=== PATIENT | male | born 1960 | race Caucasian/White ===

== ENCOUNTER 2017-09-24 18:00 | Inpatient (IN) | payer BC ==
[~2017-09-24] VITALS: Ht 177.8 cm; Wt 97.5 kg
--- NOTE | 2017-09-24 18:17 | RAD ---
CT Head W/O Contrast: History: R SIDED WEAKNESS SLURRED SPEECH X 17:15 TODAY NO PREV Comparison: none Axial images were obtained without contrast. The walker and white matter appears normal and symmetrical for the patients age. There is no mass effect, extraaxial fluid collections or hydrocephalus. There is no gross bleed. There is no focal loss of walker-white matter distinction to suggest acute ischemia, i.e. stroke. Impression: No acute findings. End impression These results were called to Jana in the Emergency Department and verified by read back at the time of dictation. PQRS Compliance Statement: One or more of the following individualized dose reduction techniques were utilized for this examination: 1. Automated exposure control 2. Adjustment of the mA and/or kV according to patient size 3. Use of iterative reconstruction technique Electronically signed by: Cesario Solis III, MD (09/24/2017 6:13 PM) [facility]
[2017-09-24 18:26] LABS: BASO # 0.1 x10^3/uL (0.0-0.2); BASO % 1 % (0-3); EOS # 0.2 x10^3/uL (0.0-0.7); EOS % 2 % (0-3); HEMATOCRIT 46.2 % (39.0-53.0); HEMOGLOBIN 16.2 g/dL (13.0-17.5); LYMPH # 1.9 x10^3/uL (1.0-4.8); LYMPH % 24 % (24-48); MEAN CORPUSCULAR HEMOGLOBIN 33 pg (25-35); MEAN CORPUSCULAR HGB CONC 35 g/dL (31-37); MEAN CORPUSCULAR VOLUME 94 fL (79-100); MONO # 0.5 x10^3/uL (0.0-1.1); MONO % 7 % (0-9); NEUT # 5.4 x10^3uL (1.8-7.7); NEUT % 67 % (31-73); PLATELET COUNT 182 x10^3/uL (140-400); RED BLOOD COUNT 4.92 x10^6/uL (4.30-5.70); RED CELL DISTRIBUTION WIDTH 13.1 % (11.5-14.5); WHITE BLOOD COUNT 8.1 x10^3/uL (4.0-11.0)
[2017-09-24] MEDS ORDERED: CLOPIDOGREL BISULFATE 75 MG TABLET PO ONE (18:30)
[2017-09-24] MEDS ORDERED: ASPIRIN CHEWABLE 81 MG TABLET. PO ONE (18:30)
--- NOTE | 2017-09-24 18:34 | PHYS DOC ---
Past Medical History Past Medical History: No Pertinent History Smoking: Cigarettes, 1 Pack Per Day Adult General Chief Complaint Chief Complaint: NEURO SYMPTOMS/DEFICITS HPI HPI Patient is a 56-year-old male who presents to the emergency department for evaluation. He states he was at home, about 40 minutes prior to arrival when he began experiencing some right sided paresthesias and tingling in his right arm, and had weakness in his right leg, his states he was dragging his right leg. He also had slurred speech. He did have a slight left-sided headache. His symptoms completely resolved, they did return briefly, and have now resolved again. He is currently asymptomatic. He denies any headache, has not had any vision changes and denies any current speech changes. He is oriented. He was given 81 mg of aspirin prior to arrival, by his . He feels completely back to baseline at this time. He has not had any similar symptoms in the past. There are no alleviating or exacerbating factors to his symptoms. Review of Systems Review of Systems Constitutional: Denies fever or chills [] Eyes: Denies change in visual acuity, redness, or eye pain [] HENT: Denies nasal congestion or sore throat [] Respiratory: Denies cough or shortness of breath [] Cardiovascular: The patient denies any shortness of breath, chest pain, palpitations, or orthopnea [] GI: Denies abdominal pain, nausea, vomiting, bloody stools or diarrhea [] : Denies dysuria or hematuria [] Musculoskeletal: Denies back pain or joint pain [] Integument: Denies rash or skin lesions [] Neurologic: As per history of present illness[] Endocrine: Denies polyuria or polydipsia [] All other systems were reviewed and found to be within normal limits, except as documented in this note. Current Medications Current Medications Current Medications Medications (Trade) Dose Ordered Sig/Saurabh Start Time Stop Time Status Last Admin Dose Admin Aspirin (Children'S Aspirin) 243 mg 1X ONCE 09/24/17 18:30 09/24/17 18:31 DC 09/24/17 19:05 243 MG Clopidogrel Bisulfate (Plavix) 300 mg 1X ONCE 09/24/17 18:30 18 18:31 DC 09/24/17 19:05 300 MG Info (CONTRAST GIVEN -- Rx MONITORING) 1 each PRN DAILY PRN 09/24/17 18:45 09/26/17 18:44 Iohexol (Omnipaque 300 Mg/ml) 75 ml 1X ONCE 09/24/17 18:45 09/24/17 18:46 DC Allergies Allergies Allergies Coded Allergies Type Severity Reaction Last Updated Verified No Known Drug Allergies 09/24/17 No Physical Exam Physical Exam PHYSICAL EXAM: CONSTITUTIONAL: Well developed, well nourished HEAD: normocephalic, atraumatic EENT: PERRL, EOMI. Conjunctivae normal color, sclerae non-icteric; moist mucous membranes. NECK: Supple, non-tender; no meningismus. There are no carotid bruits. LUNGS: Lungs CTA, breathing even and unlabored. Normal air movement. HEART: Regular rate and rhythm, no murmur CHEST: No deformity; non-tender ABDOMEN: The abdomen is soft, and non-tender, no masses or bruits. EXTREM: Normal ROM; no deformity, no calf tenderness. Normal pulses palpable in all extremities. There is no pedal edema. SKIN: No rash; no diaphoresis NEURO: Alert; normal speech and cognition; CN's grossly intact; strength grossly intact without focal deficit. Lefshb-mzpu-rhbszi and heel aleman testing are normal. Visual espana are intact by confrontation. Sensation is grossly normal. NIH stroke scale score 0. BACK: No CVA TTP. Current Patient Data Vital Signs Vital Signs Date Time Temp Pulse Resp B/P (MAP) Pulse Ox O2 Delivery O2 Flow Rate FiO2 09/24/17 18:55 70 18 97 09/24/17 18:03 98.6 186/88 (120) Room Air 98.6 Lab Values Laboratory Tests Test 09/24/17 18:04 09/24/17 18:15 Glucose (Fingerstick) 93 mg/dL (70-99) White Blood Count 8.1 x10^3/uL (4.0-11.0) Red Blood Count 4.92 x10^6/uL (4.30-5.70) Hemoglobin 16.2 g/dL (13.0-17.5) Hematocrit 46.2 % (39.0-53.0) Mean Corpuscular Volume 94 fL (79-100) Mean Corpuscular Hemoglobin 33 pg (25-35) Mean Corpuscular Hemoglobin Concent 35 g/dL (31-37) Red Cell Distribution Width 13.1 % (11.5-14.5) Platelet Count 182 x10^3/uL (140-400) Neutrophils (%) (Auto) 67 % (31-73) Lymphocytes (%) (Auto) 24 % (24-48) Monocytes (%) (Auto) 7 % (0-9) Eosinophils (%) (Auto) 2 % (0-3) Basophils (%) (Auto) 1 % (0-3) Neutrophils # (Auto) 5.4 x10^3uL (1.8-7.7) Lymphocytes # (Auto) 1.9 x10^3/uL (1.0-4.8) Monocytes # (Auto) 0.5 x10^3/uL (0.0-1.1) Eosinophils # (Auto) 0.2 x10^3/uL (0.0-0.7) Basophils # (Auto) 0.1 x10^3/uL (0.0-0.2) Prothrombin Time 12.3 SEC (11.7-14.0) Prothrombin Time INR 1.0 (0.8-1.1) Sodium Level 134 mmol/L (136-145) L Potassium Level 4.0 mmol/L (3.5-5.1) Chloride Level 103 mmol/L (98-107) Carbon Dioxide Level 24 mmol/L (21-32) Anion Gap 7 (6-14) Blood Urea Nitrogen 14 mg/dL (8-26) Creatinine 1.1 mg/dL (0.7-1.3) Estimated GFR (Cockcroft-Gault) 69.5 BUN/Creatinine Ratio 13 (6-20) Glucose Level 101 mg/dL (70-99) H Calcium Level 8.9 mg/dL (8.5-10.1) Magnesium Level 1.9 mg/dL (1.8-2.4) Total Bilirubin 0.4 mg/dL (0.2-1.0) Aspartate Amino Transferase (AST) 22 U/L (15-37) Alanine Aminotransferase (ALT) 42 U/L (16-63) Alkaline Phosphatase 91 U/L (46-116) Creatine Kinase 64 U/L (39-308) Creatine Kinase MB (Mass) 0.6 ng/mL (0.0-3.6) Creatine Kinase MB Relative Index % (0-4) Troponin I Quantitative < 0.017 ng/mL (0.000-0.055) QM-Jub-A-Type Natriuretic Peptide 29 pg/mL (0-124) Total Protein 7.1 g/dL (6.4-8.2) Albumin 3.9 g/dL (3.4-5.0) Albumin/Globulin Ratio 1.2 (1.0-1.7) Laboratory Tests 09/24/17 18:15 Laboratory Tests 09/24/17 18:15 EKG EKG [Normal sinus rhythm with a normal rate, normal axis, normal intervals, there are no acute ischemic ST/T changes.] Radiology/Procedures Radiology/Procedures [PROCEDURE: CT CODE STROKE HEAD WO CT Head W/O Contrast: History: R SIDED WEAKNESS SLURRED SPEECH X 17:15 TODAY NO PREV Comparison: none Axial images were obtained without contrast. The walker and white matter appears normal and symmetrical for the patients age. There is no mass effect, extraaxial fluid collections or hydrocephalus. There is no gross bleed. There is no focal loss of walker-white matter distinction to suggest acute ischemia, i.e. stroke. Impression: No acute findings. End impression ] Course & Med Decision Making Course & Med Decision Making Pertinent Labs and Imaging studies reviewed. (See chart for details) [6:40 PM: The patient's nurse informed me that she calculated an NIH stroke scale of 4. I went to reassess the patient. He has no drift, does not of any facial asymmetry or facial sensory deficit. I can reverify at this time that his NIH stroke scale score is 0. He will not be given TPA at this time, due to rapid resolution of his symptoms, but will be closely monitored.] 7:10 PM: The patient's condition remained stable and he remains asymptomatic. The case was discussed with the patient's PCP, Dr. Lazo, who will admit the patient for further evaluation and treatment. Dragon Disclaimer Dragon Disclaimer This electronic medical record was generated, in whole or in part, using a voice recognition dictation system. Departure Departure Impression: Primary Impression: TIA (transient ischemic attack) Disposition: ADMITTED INPATIENT Admitting Physician: Scot Lazo Condition: STABLE Referrals: SCOT LAZO MD (PCP) SCOT THOMPSON MD Sep 24, 2017 18:33
[2017-09-24 18:36] LABS: PROTHROMBIN TIME PATIENT 12.3 SEC (11.7-14.0)
[2017-09-24 18:40] LABS: CALCIUM 8.9 mg/dL (8.5-10.1); CREATININE 1.1 mg/dL (0.7-1.3); GFR 69.5
[2017-09-24] MEDS ORDERED: IOHEXOL 300 MG/ML 100ML VIAL. IV ONE (18:45)
[2017-09-24] MEDS ORDERED: CONTRAST GIVEN. MC PRN (18:45)
[2017-09-24 18:53] LABS: ALBUMIN 3.9 g/dL (3.4-5.0); ALBUMIN/GLOBULIN RATIO 1.2 (1.0-1.7); MAGNESIUM 1.9 mg/dL (1.8-2.4); TOTAL BILIRUBIN 0.4 mg/dL (0.2-1.0); TOTAL PROTEIN 7.1 g/dL (6.4-8.2)
[2017-09-24 18:55] LABS: CREATINE KINASE 64 U/L (39-308)
--- NOTE | 2017-09-24 19:31 | RAD ---
CTA head and CTA neck with contrast History: TIA, right-sided numbness and weakness now resolved Technique: Axial images were obtained of the head without contrast and axial helical images were obtained of the head and neck after the intravenous administration of 75 mL of Omni 300 IV contrast. Multiplanar reconstruction was performed on an independent work station including MIP imaging and 3D angiographic imaging. Comparison: none CTA head with contrast. Findings: Brain: The walker and white matter appears symmetrical. There is no mass effect, extra-axial fluid collections or hydrocephalus. There is no gross bleed. Distal carotid arteries: normal caliber Vertebral basilar system normal Major cerebral arteries: normal Impression: no acute findings end impression CTA neck with contrast: Findings: Aortic arch and origin of great vessels: normal Common carotid arteries: Right: normal Left: normal Internal carotid arteries: Right: normal Left: normal Vertebral basilar system normal Impression: No significant stenosis. PQRS Compliance Statement - Stenosis calculations for CT, MR and conventional angiography are based upon measurement of the distal ICA diameter in accordance with the NASCET methodology. Stenosis calculations for carotid ultrasound studies are derived from validated velocity criteria which are known to correlate with the NASCET methodology. PQRS Compliance Statement: One or more of the following individualized dose reduction techniques were utilized for this examination: 1. Automated exposure control 2. Adjustment of the mA and/or kV according to patient size 3. Use of iterative reconstruction technique Electronically signed by: Cesario Solis III, MD (09/24/2017 7:27 PM) [facility]
[2017-09-24 20:50] VITALS: BP 145/82
[2017-09-24] MEDS ORDERED: ASCO10002 PO (21:16)
[2017-09-24] MEDS ORDERED: MULT1TAB52 PO (21:16)
[2017-09-24] MEDS ORDERED: OMEG1CAP6 PO (21:16)
[2017-09-24] MEDS ORDERED: ASPI-630 PO (21:16)
[2017-09-24] MEDS ORDERED: CYAN250012 PO (21:16)
[2017-09-24] MEDS ORDERED: BENA40TA3 PO (21:16)
[2017-09-24 23:51] VITALS: BP 157/78
--- NOTE | 2017-09-25 01:14 | EKG ---
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
[2017-09-25 03:36] VITALS: BP 122/70
[2017-09-25 07:00] VITALS: BP 147/87
[2017-09-25 07:06] LABS: CHOLESTEROL/HDL RATIO 6.4
--- NOTE | 2017-09-25 08:05 | RAD ---
EXAM: Portable AP upright view of the chest DATE: 09/24/2017 6:56 PM INDICATION: STROKE LIKE SYMPTOMS RT SIDED, s/p TIA COMPARISON: No Prior FINDINGS: The heart is not enlarged. Mediastinal and hilar contours are normal. No focal parenchymal airspace opacity. No pleural effusion or pneumothorax. IMPRESSION: 1. No radiographic evidence for acute cardiopulmonary process. Electronically signed by: Bonifacio Yañez MD (09/25/2017 8:01 AM) [facility]
[2017-09-25] MEDS ORDERED: CLOPIDOGREL BISULFATE 75 MG TABLET PO SCH (08:45)
--- NOTE | 2017-09-25 08:49 | PDOC ---
Provider Note Provider Note [id number] TERESE LAZO MD Sep 25, 2017 08:49
[2017-09-25] MEDS ORDERED: LISINOPRIL 20 MG TABLET PO SCH (09:00)
--- NOTE | 2017-09-25 09:40 | SSS ---
ADMIT DATE: 09/24/2017 23-hour summary. HOSPITAL SUMMARY: A 56-year-old white male came in with a classic TIA with right-sided arm and leg weakness and some degree of aphasia that resolved after about an hour. He takes aspirin daily, so this represents an aspirin failure. CT scan of the head and CTA of the head and neck was all within normal limits. An echocardiogram is ordered and pending at this time. CBC and chemistry profile were all within normal limits. Cholesterol was low at 148, LDL 87, HDL 23 and cardiac enzymes were normal as well. He will have an echocardiogram with bubble study later today. Plavix has already been started as well as atorvastatin and he will see the neurologist. He may be able to be discharged later today if all is stable and followed as an outpatient. FINAL DIAGNOSES: 1. Transient ischemic attack with left-sided cerebral ischemic symptoms. 2. Tobaccoism. OPERATIONS, PROCEDURES, COMPLICATIONS: None. CONSULTATIONS: Dr. Monique and Dr. Umanzor. DISPOSITION: He will take the Plavix 75 mg daily instead of aspirin and also add atorvastatin 10 mg daily despite low lipids for ____ vascular benefit. He will try to discontinue smoking as is the only obvious cofactor for TIA and remain active and normal diet. Office followup in one week and we will get his lipids rechecked at that point. TERESE LAZO MD DR: ELEAZAR/alyson JOB#: [id number] / [id number]
[2017-09-25 11:00] VITALS: BP 141/75
[2017-09-25] MEDS ORDERED: ATORVASTATIN CALCIUM 10 MG TABLET. PO SCH (12:00)
--- NOTE | 2017-09-25 13:02 | PDOC2 ---
NEUROLOGY CONSULT Date of Admission Date of Admission DATE: 09/25/17 TIME: 12:50 Reason for Consult Reason for Consult: IMPRESSION: Right UE numbness and tingling, resolved in 40 minutes. Right LE weakness, resolved in about 40 minutes. TIA syndrome. HTN. HLD. Obesity. Smoking 1 pack a day x 40 years. RECOMMENDATIONS/PLAN: HCT performed, negative. CTA performed, negative. Plavix 75 mg daily. Lipitor HS. Echo pending. Treat medical diseases. Patient education for smoking cessation. HISTORY OF THE PRESENT ILLNESS: 56-y-old male patient with Hx of HTN and HLD developed symptoms of right side UE numbness and tingling and feeling right LE weakness on 09/24. He came to the ER of [facility] in about 40 minutes after his symptoms onset, but all his symptoms resolved after arrival in ER. HIs HCT and CTA were all negative. No recurrent of symptoms so far. PAST MEDICAL HISTORY: HTN. HLD. Over weight. Smoking. PAST SURGERY HISTORY: No major surgery recently. ALLERGY: Unknown MEDICATIONS: Refer to [facility] HISTORY: Non contributory. SOCIAL HISTORY: Lives at home. Denies illicit drug use. He smokes 1 pack of cigarettes a day for 40 years. He drinks occasionally. REVIEW OF SYSTEMS: Constitutional: Over weight. Head: No recent traumatic brain or head injury. Skin: No edema, or rash. Ear: No infection. Eyes: No vision loss or color blindness. Nose: No bleeding or purulent discharges. Hearing: No hearing decrease. Neck: No injury. Cardiac: HTN, HLD. Pulmonary: No COPD. GI: No GI ulcer, GI bleeding. Urinary/genital: No dysuria, incontinence, urinary retention. Endocrinologic: Over weight. Skeletomuscular: No muscular atrophy, deformity, Generalized weakness. Neurological: see HP. Psychiatric: Denies drug use/abuse. Otherwise, not [id number] review of systems. PHYSICAL EXAMINATION: General appearance is in no acute distress. HEENT: Normocephalic and nontraumatic. Eyes, nose, ears, and throat are unremarkable. Neck is supple. No lymphadenopathy. No bruits are heard over the carotid artery. No crepitus. Cardiovascular: S1, S2, regular rate and rhythm. Pulmonary: Clear to auscultation bilaterally. Abdomen: Bowel sounds are positive. Abdomen is soft, nontender, and nondistended. Extremities: No rash, lesions, or edema. No restriction of range of motion NEUROLOGICAL EXAMINATION: Alert Oriented to time, place and person. PERRL. EOMI. CN: no focal findings. Muscle tone: within normal. Muscle strength: 5 DTR: 2 Plantar reflex: Flexor response bilaterally Gait: At baseline normal. Sensory exam: no abnormal findings. No cerebellar signs elicited. F-T-N test accurate. Current Medications Current Medications Current Medications Aspirin (Children'S Aspirin) 243 mg 1X ONCE PO Last administered on 09/24/17at 19:05; Start 09/24/17 at 18:30; Stop 09/24/17 at 18:31; Status DC Clopidogrel Bisulfate (Plavix) 300 mg 1X ONCE PO Last administered on at 19:05; Start 09/24/17 at 18:30; Stop 09/24/17 at 18:31; Status DC Iohexol (Omnipaque 300 Mg/ml) 75 ml 1X ONCE IV Last administered on 09/24/17at 18:47; Start 09/24/17 at 18:45; Stop 09/24/17 at 18:46; Status DC Info (CONTRAST GIVEN -- Rx MONITORING) 1 each PRN DAILY PRN MC SEE COMMENTS; Start 09/24/17 at 18:45; Stop 09/26/17 at 18:44 Lisinopril (Prinivil) 40 mg DAILY PO Last administered on 09/25/17at 08:26; Start 09/25/17 at 09:00 Clopidogrel Bisulfate (Plavix) 75 mg DAILYWBKFT PO Last administered on at 09:30; Start 09/25/17 at 08:45 Atorvastatin Calcium (Lipitor) 10 mg QHS PO ; Start 09/25/17 at 12:00 Active Scripts Active Reported Multivitamins (Multivitamin) 1 Each Tablet 1 Tab PO DAILY Vitamin B12 (Cyanocobalamin (Vitamin B-12)) 2,500 Mcg Tab.chew 2,500 Mcg PO Vitamin C (Ascorbic Acid) 1,000 Mg Tablet 1,000 Mg PO Fish Oil 1,000 Mg Capsule (Dale-3 Fatty Acids/Fish Oil) 1 Each Capsule 1 Each PO Aspirin 81 Mg Tab.chew 1 Tab PO DAILY Benazepril Hcl 40 Mg Tablet 1 Tab PO DAILY Allergies Allergies: Allergies Coded Allergies Type Severity Reaction Last Updated Verified No Known Drug Allergies 09/24/17 No ROS Review of System The patient denies any associated fevers, chills, headache, ear pain, rhinorrhea , sore throat, stiff neck, productive cough, chest pain, shortness of breath, back or flank pain, abdominal pain, nausea, vomiting, diarrhea, constipation, dysuria, rash, numbness, weakness, tingling, incontinence, difficulty ambulating, or diaphoresis. Physical Exam Physical Exam General: Well developed, well nourished, no acute distress, well appearing HEENT: Pupils equally round and reactive to light, EOMI, no discharge, normal conjunctiva Neck: Supple, no nuchal rigidity, no JVD, trachea midline, no tenderness Cardiac: RRR, no murmurs, no gallops, no rubs Chest/Lungs: CTAB, no wheeze, no rhonchi, no crackles Abdomen: soft, non-distended, no guarding, no peritoneal signs, non-tender Back: No tenderness Extremities: no edema, pulses intact, non-tender,capillary refill <3 sec bilateral upper and lower extremities, Neuro: Alert and oriented x 4, no focal deficits, normal speech Vitals Vitals: Vital Signs Date Time Temp Pulse Resp B/P (MAP) Pulse Ox O2 Delivery O2 Flow Rate FiO2 09/25/17 11:00 97.7 63 16 141/75 (97) 96 Room Air 97.7 Labs Labs Laboratory Tests Test 09/24/17 18:04 09/24/17 18:15 09/25/17 06:10 Glucose (Fingerstick) 93 mg/dL (70-99) White Blood Count 8.1 x10^3/uL (4.0-11.0) Red Blood Count 4.92 x10^6/uL (4.30-5.70) Hemoglobin 16.2 g/dL (13.0-17.5) Hematocrit 46.2 % (39.0-53.0) Mean Corpuscular Volume 94 fL (79-100) Mean Corpuscular Hemoglobin 33 pg (25-35) Mean Corpuscular Hemoglobin Concent 35 g/dL (31-37) Red Cell Distribution Width 13.1 % (11.5-14.5) Platelet Count 182 x10^3/uL (140-400) Neutrophils (%) (Auto) 67 % (31-73) Lymphocytes (%) (Auto) 24 % (24-48) Monocytes (%) (Auto) 7 % (0-9) Eosinophils (%) (Auto) 2 % (0-3) Basophils (%) (Auto) 1 % (0-3) Neutrophils # (Auto) 5.4 x10^3uL (1.8-7.7) Lymphocytes # (Auto) 1.9 x10^3/uL (1.0-4.8) Monocytes # (Auto) 0.5 x10^3/uL (0.0-1.1) Eosinophils # (Auto) 0.2 x10^3/uL (0.0-0.7) Basophils # (Auto) 0.1 x10^3/uL (0.0-0.2) Prothrombin Time 12.3 SEC (11.7-14.0) Prothromb Time International Ratio 1.0 (0.8-1.1) Sodium Level 134 mmol/L (136-145) Potassium Level 4.0 mmol/L (3.5-5.1) Chloride Level 103 mmol/L (98-107) Carbon Dioxide Level 24 mmol/L (21-32) Anion Gap 7 (6-14) Blood Urea Nitrogen 14 mg/dL (8-26) Creatinine 1.1 mg/dL (0.7-1.3) Estimated GFR (Cockcroft-Gault) 69.5 BUN/Creatinine Ratio 13 (6-20) Glucose Level 101 mg/dL (70-99) Calcium Level 8.9 mg/dL (8.5-10.1) Magnesium Level 1.9 mg/dL (1.8-2.4) Total Bilirubin 0.4 mg/dL (0.2-1.0) Aspartate Amino Transf (AST/SGOT) 22 U/L (15-37) Alanine Aminotransferase (ALT/SGPT) 42 U/L (16-63) Alkaline Phosphatase 91 U/L (46-116) Creatine Kinase 64 U/L (39-308) Creatine Kinase MB (Mass) 0.6 ng/mL (0.0-3.6) Creatine Kinase MB Relative Index % (0-4) Troponin I Quantitative < 0.017 ng/mL (0.000-0.055) OA-Nxg-J-Type Natriuretic Peptide 29 pg/mL (0-124) Total Protein 7.1 g/dL (6.4-8.2) Albumin 3.9 g/dL (3.4-5.0) Albumin/Globulin Ratio 1.2 (1.0-1.7) Triglycerides Level 192 mg/dL (0-150) Cholesterol Level 148 mg/dL (0-200) LDL Cholesterol, Calculated 87 mg/dL (0-100) VLDL Cholesterol, Calculated 38 mg/dL (0-40) Non-HDL Cholesterol Calculated 125 mg/dL (0-129) HDL Cholesterol 23 mg/dL (40-60) Cholesterol/HDL Ratio 6.4 Vitamin B12 Level 406 pg/mL (247-911) Thyroid Stimulating Hormone (TSH) 4.948 uIU/mL (0.358-3.74) Laboratory Tests Test 09/24/17 18:04 09/24/17 18:15 09/25/17 06:10 Glucose (Fingerstick) 93 mg/dL (70-99) White Blood Count 8.1 x10^3/uL (4.0-11.0) Red Blood Count 4.92 x10^6/uL (4.30-5.70) Hemoglobin 16.2 g/dL (13.0-17.5) Hematocrit 46.2 % (39.0-53.0) Mean Corpuscular Volume 94 fL (79-100) Mean Corpuscular Hemoglobin 33 pg (25-35) Mean Corpuscular Hemoglobin Concent 35 g/dL (31-37) Red Cell Distribution Width 13.1 % (11.5-14.5) Platelet Count 182 x10^3/uL (140-400) Neutrophils (%) (Auto) 67 % (31-73) Lymphocytes (%) (Auto) 24 % (24-48) Monocytes (%) (Auto) 7 % (0-9) Eosinophils (%) (Auto) 2 % (0-3) Basophils (%) (Auto) 1 % (0-3) Neutrophils # (Auto) 5.4 x10^3uL (1.8-7.7) Lymphocytes # (Auto) 1.9 x10^3/uL (1.0-4.8) Monocytes # (Auto) 0.5 x10^3/uL (0.0-1.1) Eosinophils # (Auto) 0.2 x10^3/uL (0.0-0.7) Basophils # (Auto) 0.1 x10^3/uL (0.0-0.2) Prothrombin Time 12.3 SEC (11.7-14.0) Prothromb Time International Ratio 1.0 (0.8-1.1) Sodium Level 134 mmol/L (136-145) Potassium Level 4.0 mmol/L (3.5-5.1) Chloride Level 103 mmol/L (98-107) Carbon Dioxide Level 24 mmol/L (21-32) Anion Gap 7 (6-14) Blood Urea Nitrogen 14 mg/dL (8-26) Creatinine 1.1 mg/dL (0.7-1.3) Estimated GFR (Cockcroft-Gault) 69.5 BUN/Creatinine Ratio 13 (6-20) Glucose Level 101 mg/dL (70-99) Calcium Level 8.9 mg/dL (8.5-10.1) Magnesium Level 1.9 mg/dL (1.8-2.4) Total Bilirubin 0.4 mg/dL (0.2-1.0) Aspartate Amino Transf (AST/SGOT) 22 U/L (15-37) Alanine Aminotransferase (ALT/SGPT) 42 U/L (16-63) Alkaline Phosphatase 91 U/L (46-116) Creatine Kinase 64 U/L (39-308) Creatine Kinase MB (Mass) 0.6 ng/mL (0.0-3.6) Creatine Kinase MB Relative Index % (0-4) Troponin I Quantitative < 0.017 ng/mL (0.000-0.055) PW-Lmp-C-Type Natriuretic Peptide 29 pg/mL (0-124) Total Protein 7.1 g/dL (6.4-8.2) Albumin 3.9 g/dL (3.4-5.0) Albumin/Globulin Ratio 1.2 (1.0-1.7) Triglycerides Level 192 mg/dL (0-150) Cholesterol Level 148 mg/dL (0-200) LDL Cholesterol, Calculated 87 mg/dL (0-100) VLDL Cholesterol, Calculated 38 mg/dL (0-40) Non-HDL Cholesterol Calculated 125 mg/dL (0-129) HDL Cholesterol 23 mg/dL (40-60) Cholesterol/HDL Ratio 6.4 Vitamin B12 Level 406 pg/mL (247-911) Thyroid Stimulating Hormone (TSH) 4.948 uIU/mL (0.358-3.74) ROSY BARRETT MD Sep 25, 2017 13:02
[2017-09-25 13:40] LABS: BARBITURATES NEG (NEG); BENZODIAZEPINES NEG (NEG); CANNABINOIDS NEG (NEG); COCAINE NEG (NEG); METHADONE NEG (NEG); OPIATES NEG (NEG); PHENCYCLIDINE NEG (NEG)
[2017-09-25 13:42] LABS: AMPHETAMINE/METHAMPHETAMINE NEG (NEG)
[2017-09-25 15:00] VITALS: BP 122/77
--- NOTE | 2017-09-25 16:23 | RAD ---
Carotid doppler ultrasound Indication: Right-sided weakness, TIA Technique: Longitudinal and transverse sonographic images of the carotid arteries was performed utilizing grayscale, color and spectral Doppler techniques. Comparison: None Findings: Right carotid arteries: Mild plaque is seen. Spectral Doppler analysis reveals peak systolic velocity of distal common carotid artery to be 65 cm/sec and peak systolic velocity of proximal ICA 58 cm/sec with end-diastolic velocity of 21. This results in the ICA/CCA ratio of 0.94 . Left carotid artery: Mild plaque is seen. Spectral Doppler analysis reveals peak systolic velocity of distal left common carotid artery to be 85 cm/sec and peak systolic velocity of proximal ICA 78 cm/sec with end-diastolic velocity of 30 cm/sec. This results in the ICA/CCA ratio of 1.15. Vertebral arteries are patent with antegrade flow bilaterally and normal waveform. External carotid arteries are also patent bilaterally. Impression: No evidence of flow restrictive disease within either carotid arteries. Electronically signed by: Bonifacio Yañez MD (09/25/2017 4:19 PM) [facility]
--- NOTE | 2017-09-25 16:31 | CARD ---
MR#: [id number] Date of Study: 09/25/2017 Ordering Physician: TERESE LAZO, Referring Physician: TERESE LAZO Tech: Delmy Arzola RDCS APPROVED REPORT EXAM: Two-dimensional and M-mode echocardiogram with Doppler and color Doppler. Other Information Quality : Good INDICATION CVA/TIA Echo Enhancing Agent Agent/Amount Used: Agitated Saline 8mL 2D DIMENSIONS RVDd2.6 (2.9-3.5cm)Left Atrium(2D)3.7 (1.6-4.0cm) IVSd1.0 (0.7-1.1cm)Aortic Root(2D)3.1 (2.0-3.7cm) LVDd5.1 (3.9-5.9cm)LVOT Diameter2.2 (1.8-2.4cm) PWd1.0 (0.7-1.1cm)LVDs2.4 (2.5-4.0cm) FS (%) 30.0 %SV101.4 ml LVEF(%)60.0 (>50%) Aortic Valve AoV Peak Ej.109.1cm/sAoV VTI21.3cm AO Peak GR.4.8mmHgLVOT VTI 19.09cm AO Mean GR.2mmHgAVA (VTI)3.40cm2 Mitral Valve MV E Riqoohda70.3cm/sMV DECEL AJKV131eo MV A Djedsaui06.9cm/sE/A Ratio1.1 TDI Lateral E' P. V10.04cm/sMedial E' P. V5.86cm/s E/Lateral E'6.4E/Medial E'11.0 Tricuspid Valve TR P. Saejtgfi376gv/sRAP [id number] TR Peak Gr.53ciKyOVXB27uaPn Pulmonary Vein S1 Zbleoupm61.1cm/sS2 Qikqbosa40.57cm/s D2 Hwvidgpk56.6cm/s LEFT VENTRICLE The left ventricle is normal size. There is normal left ventricular wall thickness. The left ventricu lar systolic function is normal and the Ejection Fraction is 60%. There is normal LV segmental wall m otion. No thrombus seen in the LV RIGHT VENTRICLE The right ventricle is normal size. The right ventricular systolic function is normal. ATRIA The left atrium size is normal. The right atrium size is normal. The interatrial septum is intact wit h no evidence for an atrial septal defect or patent foramen ovale as noted on 2-D or Doppler imaging. Injection of bubbles documented no interatrial shunt. AORTIC VALVE The aortic valve is calcified but opens well. Doppler and Color Flow revealed no significant aortic r egurgitation. There is no significant aortic valvular stenosis. MITRAL VALVE The mitral valve is normal in structure There is no evidence of mitral valve prolapse. There is no mi tral valve stenosis. Doppler and Color-flow revealed trace mitral regurgitation. TRICUSPID VALVE The tricuspid valve is normal in structure. Doppler and Color Flow revealed trace tricuspid regurgita tion. The PA pressure was estimated at 27 mmHg. There is no tricuspid valve stenosis. PULMONIC VALVE The pulmonic valve is not well visualized. Doppler and Color Flow revealed no pulmonic valvular regur gitation. There is no pulmonic valvular stenosis. GREAT VESSELS The aortic root is normal in size. The ascending aorta is normal in size. The IVC is normal in size a nd collapses >50% with inspiration. PERICARDIAL EFFUSION There is no evidence of significant pericardial effusion. Critical Notification Critical Value: No <Conclusion> The left ventricular systolic function is normal and the Ejection Fraction is 60%. No thrombus seen in the LV The left atrium size is normal. The right atrium size is normal. The interatrial septum is intact with no evidence for an atrial septal defect or patent foramen ovale as noted on 2-D or Doppler imaging. Injection of bubbles documented no interatrial shunt. The aortic valve is calcified but opens well. Doppler and Color Flow revealed no significant aortic regurgitation. Doppler and Color-flow revealed trace mitral regurgitation. Doppler and Color Flow revealed trace tricuspid regurgitation. The PA pressure was estimated at 27 mmHg. The pulmonic valve is not well visualized. There is no evidence of significant pericardial effusion. Signed by : Gerard Braun MD Electronically Approved : 09/25/2017 16:29:56
[2017-09-25] MEDS ORDERED: CLOP75TA PO (17:15)
== END 2017-09-25 18:17 | disposition home or self-care (01) | DRG 69 ==
LOC: ER 18:00 → 6 SOUTH 19:15
PROVIDERS: ADMIT Family Medicine; ATTEND Family Medicine
DX: G45.9 Transient cerebral ischemic attack, unspecified (principal); I10 Essential (primary) hypertension; E78.5 Hyperlipidemia, unspecified; F17.210 Nicotine dependence, cigarettes, uncomplicated; E66.9 Obesity, unspecified; Z68.30 Body mass index [BMI] 30.0-30.9, adult
CPT/HCPCS: 99285; C8929; 36415; 70450; 70496; 70498; 71045; 80053; 80061; 80307; 82553; 82607; 82962; 83735; 83880; 84443; 84484; 85025; 85610; 93005; 93880; 99406; Q9967; G0479